=== PATIENT | male | born 1990 | race Caucasian/White ===

== ENCOUNTER 2017-01-02 21:18 | Emergency (ER) | payer OTHER ==
[~2017-01-02] VITALS: Ht 185.4 cm; Wt 77.1 kg
[2017-01-02 21:36] VITALS: BP 149/65
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
== END 2017-01-02 22:01 | disposition left against medical advice (07) ==
LOC: ER 21:18
DX: T42.4X5A Adverse effect of benzodiazepines, initial encounter (principal); Y92.89 Other specified places as the place of occurrence of the external cause
CPT/HCPCS: 99283